=== PATIENT | female | born 1995 | race Two or more races ===

== ENCOUNTER 2023-07-22 12:19 | Emergency (ER) | payer OTHER ==
[~2023-07-22] VITALS: Ht 162.6 cm; Wt 72.6 kg
[~2023-07-22 12:19] MED LIST: PRENATAL TABLE1 EAC1 PO
[2023-07-22 14:34] LABS: HEMATOCRIT 41.9 % (36.0-45.00); HEMOGLOBIN 14.3 g/dL (12.0-15.00); MEAN CELL VOLUME 90.8 fL (80.00-100.00); MEAN CORPUSCULAR HGB CONC 34.2 g/dl (32.0-36.0); PLATELET COUNT 266 K/uL (150-450); RED BLOOD COUNT 4.61 M/uL (4.00-6.00); RED CELL DISTRIBUTION WIDTH 12.9 % (11.5-14.5)
[2023-07-22 14:58] LABS: CREATININE SERUM 1.13 mg/dL (0.55-1.02); GFR 57.33; POTASSIUM 3.7 mEq/L (3.5-5.1)
== END 2023-07-22 16:59 | disposition home or self-care (01) ==
LOC: ER 12:20
PROVIDERS: General Practice
DX: O20.0 Threatened abortion (principal); Z3A.01 Less than 8 weeks gestation of pregnancy

== ENCOUNTER 2023-10-14 11:09 | Emergency (ER) | payer OTHER ==
[~2023-10-14] VITALS: Ht 167.6 cm; Wt 72.6 kg
== END 2023-10-14 14:21 | disposition home or self-care (01) ==
LOC: ER 11:09
DX: S09.8XXA Other specified injuries of head, initial encounter (principal); H11.31 Conjunctival hemorrhage, right eye; Y04.2XXA Assault by strike against or bumped into by another person, initial encounter; Y93.89 Activity, other specified; Y92.89 Other specified places as the place of occurrence of the external cause; Y99.8 Other external cause status